=== PATIENT | female | born 1940 ===

== ENCOUNTER → 2025-04-23 10:36 | Outpatient (BNVA) | payer MEDICARE, SELFPAY | PROVIDERS: PCP Family Medicine; Visit Provider Psychiatry & Neurology Neurology | DX: F07.81 Postconcussional syndrome (principal); M62.838 Other muscle spasm; G44.309 Post-traumatic headache, unspecified, not intractable | CPT/HCPCS: 99203 ==

== ENCOUNTER → 2025-08-18 12:47 | Outpatient (BNVA) | payer MEDICARE, SELFPAY | PROVIDERS: PCP Family Medicine; Referring Provider Family Medicine; Visit Provider Specialist | DX: G44.309 Post-traumatic headache, unspecified, not intractable (principal); R03.0 Elevated blood-pressure reading, without diagnosis of hypertension; R41.3 Other amnesia | CPT/HCPCS: 96116; 99214 ==